=== PATIENT | female | born 1975 | race Two or more races ===

== ENCOUNTER 2016-09-09 09:01 | Emergency (ER) | payer MEDICAID ==
[~2016-09-09] VITALS: Ht 149.9 cm; Wt 92.1 kg
[~2016-09-09 09:01] MED LIST: ATOR20TA50 PO; LORA-655 PO; WARF5TAB PO
[2016-09-09 10:00] VITALS: BP 155/90
[2016-09-09 10:24] LABS: Basophils # (auto) 0 uL; Basophils % (auto) 0.5 % (0.0-2.0); Eosinophils # (auto) 0.2 uL; Eosinophils % (auto) 2.5 % (0.0-7.0); Hematocrit 41.3 % (36.0-46.0); Hemoglobin 13.6 g/dL (12.2-16.2); Lymphocytes # (auto) 2.6 uL; Lymphocytes % (auto) 30.3 % (10.0-50.0); Mean Corpuscular Hemoglobin 27.9 pg (28.0-32.0); Mean Corpuscular Hgb Conc. 33.1 g/dL (32.0-36.0); Mean Corpuscular Volume 84.4 fL (80.0-100.0); Mean Platelet Volume 8.7 fL (7.4-10.4); Monocytes # (auto) 0.4 uL; Monocytes % (auto) 4.6 % (0.0-12.0); Neutrophils # (auto) 5.2 uL; Neutrophils % (auto) 62.1 % (37.0-80.0); Platelet Count (auto) 313 10^3/uL (140-450); Red Cell Distribution Width 14.6 % (11.6-16.0); White Blood Cell 8.4 10^3/uL (4.4-10.8)
[2016-09-09 10:42] LABS: Albumin 3.4 g/dL (3.4-5.0); Bilirubin, Total 0.3 mg/dL (0.2-1.0); Calcium 8.8 mg/dL (8.5-10.1); Potassium 4.1 mmol/L (3.5-5.1); Total Protein 7.7 g/dL (6.4-8.2)
[2016-09-09 11:11] LABS: INR 1.36 (0.9-1.15)
== END 2016-09-09 12:02 | disposition home or self-care (01) ==
LOC: ER 09:12
DX: S86.911A Strain of unspecified muscle(s) and tendon(s) at lower leg level, right leg, initial encounter (principal); J45.909 Unspecified asthma, uncomplicated; Z86.73 Personal history of transient ischemic attack (TIA), and cerebral infarction without residual deficits; M79.89 Other specified soft tissue disorders; Z86.718 Personal history of other venous thrombosis and embolism; Z88.6 Allergy status to analgesic agent; Z88.8 Allergy status to other drugs, medicaments and biological substances; Z79.899 Other long term (current) drug therapy; X58.XXXA Exposure to other specified factors, initial encounter; Y93.89 Activity, other specified; Y99.8 Other external cause status; Y92.89 Other specified places as the place of occurrence of the external cause
CPT/HCPCS: 36415; 80053; 85025; 85610; 93971

== ENCOUNTER 2017-03-09 07:24 | Inpatient (IN) | payer MEDICAID ==
[~2017-03-09] VITALS: Ht 149.9 cm; Wt 99.2 kg
[2017-03-09 07:50] LABS: Basophils # (auto) 0 uL; Basophils % (auto) 0.5 % (0.0-2.0); CONDITION Y; Eosinophils # (auto) 0.2 uL; Hematocrit 38.9 % (36.0-46.0); Hemoglobin 13.1 g/dL (12.2-16.2); Lymphocytes # (auto) 2.2 uL; Lymphocytes % (auto) 33.7 % (10.0-50.0); Mean Corpuscular Hemoglobin 28.5 pg (28.0-32.0); Mean Corpuscular Hgb Conc. 33.7 g/dL (32.0-36.0); Mean Corpuscular Volume 84.6 fL (80.0-100.0); Mean Platelet Volume 8.6 fL (7.4-10.4); Monocytes # (auto) 0.4 uL; Monocytes % (auto) 5.6 % (0.0-12.0); Neutrophils # (auto) 3.6 uL; Neutrophils % (auto) 57.2 % (37.0-80.0); Platelet Count (auto) 340 10^3/uL (140-450); Red Cell Distribution Width 14.3 % (11.6-16.0); White Blood Cell 6.4 10^3/uL (4.4-10.8)
[2017-03-09] MEDS ORDERED: LORazepam 2MG/ML-1ML VIAL IV ONE (08:00)
[2017-03-09 08:13] LABS: Albumin 3.3 g/dL (3.4-5.0); Alkaline Phosphatase 66 U/L (45-117); Anion Gap 5 (5-15); Aspartate Aminotransferase 15 U/L (15-37); BUN/Creatinine Ratio 19.2; Bilirubin, Total 0.3 mg/dL (0.2-1.0); Blood Urea Nitrogen 15 mg/dL (7-18); Calcium 8.6 mg/dL (8.5-10.1); Carbon Dioxide 26 mmol/L (21-32); Chloride 107 mmol/L (98-107); GFR African American 104 mL/min; GFR Non-African American 86 mL/min; Glucose 101 mg/dL (74-106); Magnesium 2.2 mg/dL (1.6-2.6); Potassium 4.3 mmol/L (3.5-5.1); Sodium 138 mmol/L (136-145); Total Protein 7.3 g/dL (6.4-8.2)
[2017-03-09 08:22] LABS: INR 1.27 (0.9-1.15)
[2017-03-09 08:50] LABS: B-Type Natriuretic Peptide 21.99 pg/mL (0-100)
[2017-03-09] MEDS ORDERED: NITROGLYCERIN 0.4 MG SL TAB SL PRN (10:00)
[2017-03-09] MEDS ORDERED: LORazepam 0.5 MG TAB PO PRN (10:00)
[2017-03-09] MEDS ORDERED: ONDANSETRON HCL 4 MG/2 ML VIAL IV PRN (10:00)
[2017-03-09] MEDS ORDERED: TEMAZEPAM 15 MG CAP PO PRN (10:00)
[2017-03-09] MEDS ORDERED: ACETAMINOPHEN 500 MG TAB PO PRN ×2 (10:00→10:15)
[2017-03-09] MEDS ORDERED: PROMETHAZINE HCL 25 MG/ML 1ML IV PRN (10:15)
[2017-03-09 10:37] LABS: Cholesterol 215 mg/dL (< 200); HDL Cholesterol 41 mg/dL (40-59); LDL Cholesterol 128 mg/dL (< 100); Triglycerides 328 mg/dL (< 150)
[2017-03-09] MEDS: ASPirin-EC 81 mg tab PO SCH (11:51)
[2017-03-09] MEDS: ENOXAPARIN SOD 80 MG/0.8ML SYRINGE SC SCH ×2 (11:51→21:33)
[2017-03-09] MEDS: SODIUM CHLORIDE 0.9% 1,000 ML IV SCH ×2 (12:23→23:23)
[2017-03-09] MEDS ORDERED: GEMF600T PO (13:32)
[2017-03-09] MEDS ORDERED: WARFARIN SODIUM 2.5 MG TAB PO ONE (17:00)
[2017-03-09 22:00] VITALS: BP 125/61
[2017-03-10 04:51] VITALS: BP 119/75
[2017-03-10 07:11] LABS: Basophils # (auto) 0 uL; Basophils % (auto) 0.5 % (0.0-2.0); CONDITION Y; Eosinophils # (auto) 0.2 uL; Eosinophils % (auto) 3.3 % (0.0-7.0); Hematocrit 36.5 % (36.0-46.0); Hemoglobin 12.4 g/dL (12.2-16.2); Lymphocytes % (auto) 36.9 % (10.0-50.0); Mean Corpuscular Hemoglobin 28.8 pg (28.0-32.0); Mean Corpuscular Volume 84.6 fL (80.0-100.0); Mean Platelet Volume 9.1 fL (7.4-10.4); Monocytes # (auto) 0.3 uL; Monocytes % (auto) 6.3 % (0.0-12.0); Neutrophils # (auto) 2.9 uL; Platelet Count (auto) 297 10^3/uL (140-450); Red Cell Distribution Width 14.3 % (11.6-16.0); White Blood Cell 5.5 10^3/uL (4.4-10.8)
[2017-03-10 07:14] LABS: INR 1.28 (0.9-1.15); Partial Thromboplastin Time 34.3 sec (22.64-33.71)
[2017-03-10 07:21] LABS: BUN/Creatinine Ratio 19.4; Calcium 7.9 mg/dL (8.5-10.1)
[2017-03-10 07:49] LABS: Potassium 4.3 mmol/L (3.5-5.1)
[2017-03-10 08:51] VITALS: BP 118/72
[2017-03-10] MEDS: ASPirin-EC 81 mg tab PO SCH (10:41)
[2017-03-10] MEDS: ENOXAPARIN SOD 80 MG/0.8ML SYRINGE SC SCH (10:41)
[2017-03-10] MEDS ORDERED: WARFARIN SODIUM 2.5 MG TAB PO ONE (17:00)
== END 2017-03-10 13:03 | disposition left against medical advice (07) | DRG 203 ==
LOC: ER 07:24 → TELE 07:25 → TELE-E-ADS 16:10 → TELE-WESTW 17:17
PROVIDERS: ADMIT Nurse Practitioner Family; ATTEND Nurse Practitioner Family
DX: R07.9 Chest pain, unspecified (principal); Z68.41 Body mass index [BMI] 40.0-44.9, adult; E66.01 Morbid (severe) obesity due to excess calories; F41.9 Anxiety disorder, unspecified; J45.909 Unspecified asthma, uncomplicated; Z85.528 Personal history of other malignant neoplasm of kidney; Z86.718 Personal history of other venous thrombosis and embolism; M19.90 Unspecified osteoarthritis, unspecified site; Z88.5 Allergy status to narcotic agent; Z88.8 Allergy status to other drugs, medicaments and biological substances; Z90.49 Acquired absence of other specified parts of digestive tract; Z90.5 Acquired absence of kidney; Z71.89 Other specified counseling; Z53.21 Procedure and treatment not carried out due to patient leaving prior to being seen by health care provider
CPT/HCPCS: 36415; 71020; 73030; 76881; 80048; 80053; 80061; 80307; 82550; 83735; 83880; 84443; 84484; 84702; 85025; 85379; 85610; 85652; 85730; 86141; 93005; 93970; 94761; 96360; 96372; 96374